=== PATIENT | female | born 1995 | race Caucasian/White ===

== ENCOUNTER 2017-01-27 19:42 | Emergency (ER) | payer OTHER ==
[2017-01-27 19:44] LABS: URINE SOURCE CLEAN CATCH
[2017-01-27 19:47] LABS: URINE APPEARANCE CLEAR; URINE BILIRUBIN NEG (NEG); URINE BLOOD NEG (NEG); URINE COLOR YELLOW; URINE GLUCOSE NEG (NEG); URINE KETONE NEG (NEG); URINE LEUKOCYTE ESTERASE NEG (NEG); URINE NITRATE NEG (NEG); URINE PROTEIN NEG (NEG); URINE SPECIFIC GRAVITY 1.005 (1.003-1.035); URINE UROBILINOGEN 0.2 MG/DL (NEG)
[2017-01-27 19:50] LABS: CULTURE INDICATED? NO
[2017-01-27 20:19] LABS: BUN/CREATININE RATIO 26.66; CALCIUM SERUM 9.4 mg/dL (8.4-10.2); CREATININE SERUM 0.6 mg/dL (0.6-1.4); GLOM FILT RATE Estimated 129.4 mL/min (>60); POTASSIUM 3.5 mmol/L (3.5-5.1)
[2017-01-27 20:22] LABS: BASOPHIL% 0.4 % (0-2.5); EOSINOPHIL# 0.1 X10e3 (0-0.7); EOSINOPHIL% 0.7 % (0.0-7.0); HEMATOCRIT 39.6 % (35.0-45.0); LYMPHOCYTE# 3.6 X10e3 (1.0-3.5); LYMPHOCYTE% 29.9 % (17.0-45.0); MEAN CELL VOLUME 88.4 FL (83-96); MEAN CORPUSCULAR HEMOGLOBIN 29.1 PG (28-34); MEAN CORPUSCULAR HGB CONC 32.9 g/dL (30-36); MONOCYTE# 0.7 X10e3 (0-1.0); MONOCYTE% 5.4 % (3.0-12.0); NEUTROPHIL# 7.7 X10e3 (1.5-7.1); NEUTROPHIL% 63.6 % (40-75); PLATELET COUNT 346 X10e3 (140-420); RED BLOOD COUNT 4.48 X10e (3.90-5.30); RED CELL DISTRIBUTION WIDTH 13.3 % (11.0-15.5); WHITE BLOOD COUNT 12.1 X10e3 (4.0-10.5)
[2017-01-27 20:26] LABS: DIFF IND NO
[2017-01-31 08:08] LABS: CHLAMYDIA TRACH Not Detected (Not Detected); N GONOR Not Detected (Not Detected)
== END 2017-01-27 21:05 | disposition home or self-care (01) ==
LOC: CFTX 19:42
PROVIDERS: Nurse Practitioner Family
DX: N72 Inflammatory disease of cervix uteri (principal)
CPT/HCPCS: 36415; 80048; 81003; 84703; 85025; 87491; 87591; 87808; 87905; 96372; 99284; J0696

== ENCOUNTER 2017-02-02 11:37 | Emergency (ER) | payer OTHER ==
--- NOTE | ~2017-02-02 | US84 ---
[id number] [facility] [address] [place], [place] [address] [id number] E MR#: [id number] Acc #: [id number] NAME: ANNABEL ALEXANDER : 1995 SEX: F STUDY DATE/TIME: 02/02/2017 14:36 UNIT: [facility] ROOM: STUDY DESCRIPTION: US LE Veins Complete Devaughn Stdy Attending Physician: Johnny Rangel D.O. Ordering Physician: Johnny Rangel D.O. Primary Care Physician: Primary Care Physician No MEDICAL IMAGING REPORT This report is preliminary unless electronic signature is present EXAM Bilateral lower extremity venous duplex 02/02/2017 HISTORY Bilateral lower extremity pain for 3 weeks. Evaluate for deep vein thrombosis. TECHNIQUE Venous ultrasound examination of both lower extremities was performed using grayscale, spectral Doppler and color flow Doppler imaging. FINDINGS The examination is negative. There is no evidence of deep venous thrombus from the groin to the lower calf bilaterally. Visualized greater saphenous veins are also patent. IMPRESSION Negative examination. No evidence of lower extremity deep venous thrombosis. Dictated by... Faizan Moore M.D. THIS IS AN ELECTRONICALLY VERIFIED REPORT Faizan Moore M.D. at 02/03/2017 7:55 AM KRT/to TD: 02/02/2017 16:11 JOB #: [id number] MEDICAL IMAGING REPORT Page 1 of 1 COPY
--- NOTE | ~2017-02-02 | CT2 ---
[facility] A Service [facility] RADIOLOGY TEXT RESULTS PATIENT: ANNABEL ALEXANDER LOCATION: [facility] : [birth year] UNIT #: [id number] AGE: [address]: Johnny Rangel DO SEX: F ORDER DR: [id number] [facility] [address] [place], [place] [address] [id number] E MR#: [id number] Acc #: [id number] NAME: ANNABEL ALEXANDER : 1995 SEX: F STUDY DATE/TIME: 02/02/2017 14:10 UNIT: [facility] ROOM: STUDY DESCRIPTION: CT Abd and Pelv W Cont Attending Physician: Johnny Rangel D.O. Ordering Physician: Johnny Rangel D.O. MEDICAL IMAGING REPORT This report is preliminary unless electronic signature is present EXAM Abdomen and pelvis CT with contrast HISTORY Pelvic pain for the past 6 days. Symptoms worse today. TECHNIQUE Axial images were obtained with intravenous contrast. 100 mL of Isovue was used. This CT exam was performed with one or more of the following radiation dose reduction techniques: automatic exposure control, adjustment of mA and/or kV according to patient size, and iterative reconstruction. FINDINGS No upper abdominal solid organ abnormalities are seen. There is no evidence of retroperitoneal adenopathy or ascites. No distended bowel loops are noted. There is no evidence of appendicitis. Small amount of free fluid is seen in the pelvic cul-de-sac. This can be seen as a normal finding in this age group. There is no evidence of pelvic abscess. No adenopathy seen in the pelvis. IMPRESSION There is a small amount of free fluid in the pelvic cul-de-sac which can be a normal finding in this age group. Otherwise negative study. Dictated by... Emir Ricks M.D. THIS IS AN ELECTRONICALLY VERIFIED REPORT Emir Ricks M.D. at 02/03/2017 10:15 AM RLF/be [facility] A Service of [facility] RADIOLOGY TEXT RESULTS PATIENT: ANNABEL ALEXANDER [id number] : [birth year] UNIT #: [id number] AGE: [address]: Johnny Rangel DO SEX: F ORDER DR: TD: 02/02/2017 16:07 JOB #: [id number] MEDICAL IMAGING REPORT Page 1 of 1 COPY
[2017-02-02 12:17] LABS: URINE SOURCE CLEAN CATCH
[2017-02-02 12:22] LABS: BASOPHIL% 0.4 % (0-2.5); EOSINOPHIL# 0.1 X10e3 (0-0.7); EOSINOPHIL% 1.5 % (0.0-7.0); HEMATOCRIT 40.2 % (35.0-45.0); HEMOGLOBIN 13.3 gm/dL (12.0-16.0); LYMPHOCYTE# 2.7 X10e3 (1.0-3.5); LYMPHOCYTE% 31.7 % (17.0-45.0); MEAN CELL VOLUME 88.1 FL (83-96); MEAN CORPUSCULAR HEMOGLOBIN 29.1 PG (28-34); MEAN PLATELET VOLUME 9.1 FL (6.5-11.5); MONOCYTE# 0.5 X10e3 (0-1.0); MONOCYTE% 5.3 % (3.0-12.0); NEUTROPHIL# 5.2 X10e3 (1.5-7.1); NEUTROPHIL% 61.1 % (40-75); PLATELET COUNT 308 X10e3 (140-420); RED BLOOD COUNT 4.57 X10e (3.90-5.30); RED CELL DISTRIBUTION WIDTH 13.3 % (11.0-15.5); WHITE BLOOD COUNT 8.6 X10e3 (4.0-10.5)
[2017-02-02 12:25] LABS: URINE APPEARANCE CLEAR; URINE BILIRUBIN NEG (NEG); URINE BLOOD NEG (NEG); URINE COLOR YELLOW; URINE GLUCOSE NEG (NEG); URINE KETONE NEG (NEG); URINE LEUKOCYTE ESTERASE NEG (NEG); URINE NITRATE NEG (NEG); URINE PH 7.5 (5-8); URINE PROTEIN NEG (NEG); URINE SPECIFIC GRAVITY 1.004 (1.003-1.035); URINE UROBILINOGEN 0.2 MG/DL (NEG)
[2017-02-02 12:31] LABS: DIFF IND NO
[2017-02-02 12:33] LABS: CULTURE INDICATED? NO
[2017-02-02 13:08] LABS: ALBUMIN SERUM 4.7 g/dL (3.5-5.0); ALKALINE PHOSPHATASE 63 U/L (32-92); ALT (SGPT) 17 U/L (10-40); AST (SGOT) 18 U/L (10-42); BILIRUBIN, DIRECT <0.1 mg/dL (0.0-0.2); BILIRUBIN,INDIRECT 0.3 mg/dL (0.0-0.9); BILIRUBIN,TOTAL 0.4 mg/dL (0.2-2.0); BLOOD UREA NITROGEN 10 mg/dL (9-23); BUN/CREATININE RATIO 16.66; CALCIUM SERUM 9.3 mg/dL (8.4-10.2); CARBON DIOXIDE 25 mmol/L (22-31); CHLORIDE 106 mmol/L (100-111); CREATININE SERUM 0.6 mg/dL (0.6-1.4); GLOM FILT RATE Estimated 129.4 mL/min (>60); GLUCOSE FASTING 88 mg/dL (70-110); LIPASE 32 U/L (22-51); POTASSIUM 3.9 mmol/L (3.5-5.1); PROTEIN TOTAL SERUM 7.5 g/dL (6.0-8.3); SODIUM 138 mmol/L (135-145)
== END 2017-02-02 15:35 | disposition home or self-care (01) ==
LOC: CED 11:37
PROVIDERS: Emergency Medicine
DX: R10.9 Unspecified abdominal pain (principal); M79.605 Pain in left leg; M79.604 Pain in right leg
CPT/HCPCS: 36415; 74177; 80048; 80076; 81003; 83690; 84703; 85025; 93970; 96374; 96375; 99284; J2270; J2405; Q9967